=== PATIENT | male | born 1995 | race African-American/Black ===

== ENCOUNTER 2016-09-14 09:30 | Emergency (ER) | END 2016-09-14 11:01 | disposition left against medical advice (07) | LOC: UCCORT 09:30 | DX: M79.641 Pain in right hand (principal); Z53.21 Procedure and treatment not carried out due to patient leaving prior to being seen by health care provider ==

== ENCOUNTER 2019-05-26 16:45 | Emergency (ER) | payer OTHER ==
[2019-05-26 17:12] VITALS: BP 132/65
--- NOTE | 2019-05-26 17:33 | UC ---
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 No penile discharge, fever, back pain. Symptoms are intermittent and overall mild. - History of Current Complaint Chief Complaint: [facility]CGU Stated Complaint: URINARY Time Seen by Provider: 05/26/19 17:22 Hx Obtained From: Patient Onset/Duration: Gradual Onset, Lasting Weeks Timing: Intermittent, Lasting Hours Severity Initially: Mild Severity Currently: Mild Pain Intensity: 0 Location: Scrotum - has some pruritus without lesions. Character: Burning Aggravating Factor(s): Voiding Associated Signs And Symptoms: Positive: Dysuria. Negative: Back Pain, Fever, Hematuria, Rectal Pain, Nausea Prior STD Hx: Chlamydia earlier this year. - Risk Factors Testicular Torsion: Negative - Allergies/Home Medications Allergies/Adverse Reactions: Allergies Allergy/AdvReac Type Severity Reaction Status Date / Time amoxicillin Allergy Rash Verified 05/26/19 17:13 Home Medications: Home Medications NK [No Home Medications Reported] 05/26/19 [History Confirmed 05/26/19] PMH/Surg Hx/FS Hx/Imm Hx Previously Healthy: Yes GI/ History: Gastroesophageal Reflux - approached with dietary changes. - Surgical History Surgical History: None - Family History Known Family History: Positive: Diabetes - younger sibling. - Social History Occupation: Student Lives: Dormitory/Roommates Alcohol Use: Weekly Substance Use Type: None Smoking Status (MU): Current Some Day Smoker Review of Systems All Other Systems Reviewed And Are Negative: Yes Constitutional: Positive: Negative Skin: Positive: Negative Eyes: Positive: Negative ENT: Positive: Negative Respiratory: Positive: Negative Cardiovascular: Positive: Negative Gastrointestinal: Positive: Negative Genitourinary: Positive: Dysuria Motor: Positive: Negative Neurovascular: Positive: Negative Musculoskeletal: Positive: Negative Neurological: Positive: Negative Psychological: Positive: Negative Is Patient Immunocompromised?: No Physical Exam Triage Information Reviewed: Yes Appearance: Well-Appearing, No Pain Distress Vital Signs: Initial Vital Signs Temp 98.2 F 05/26/19 17:07 Pulse 62 05/26/19 17:07 Resp 16 05/26/19 17:07 BP 132/65 05/26/19 17:07 Pulse Ox 100 05/26/19 17:07 ENT: Positive: Pharynx normal Neck: Positive: Supple, Nontender, No Lymphadenopathy Respiratory: Positive: Lungs clear, Normal breath sounds Cardiovascular: Positive: RRR, No Murmur Abdomen Description: Positive: Nontender Male Genital Exam: Positive: Erythema - mild ezekiel-urethral erythema of the glans, without active discharge. Musculoskeletal Exam: Normal Neurological Exam: Normal Psychological Exam: Normal Skin Exam: Normal Complaint Male Course/Dx - Course Course Of Treatment: Discussed options, and, given hx suggestive of Chlamydia, opted for single dose treatment. - Differential Dx/Diagnosis Differential Diagnosis/HQI/PQRI: Urinary Tract Infection, Other - STI Provider Diagnosis: STI (sexually transmitted infection) Discharge ED - Sign-Out/Discharge Documenting (check all that apply): Patient Departure All imaging exams completed and their final reports reviewed: No Studies - Discharge Plan Condition: Good Disposition: HOME Patient Education Materials: Chlamydia (ED) Referrals: No Primary Care Phys,NOPCP [Primary Care Provider] - Additional Instructions: You have been treated presumptively for chlamydia, based on your current symptoms and past experience. You have received 1000mg of azithromycin, which is adequate treatment. Ensure that you consistently use condoms for protection. - Billing Disposition and Condition Condition: GOOD Disposition: Home
[2019-05-26] MEDS ORDERED: Azithromycin TAB* 250 MG PO ONE (17:36)
[2019-05-28 13:22] LABS: Chlamydia trachomatis NAA Negative (Negative); Neisseria gonorrhoeae (GC) NAA Negative (Negative)
== END 2019-05-26 17:50 | disposition home or self-care (01) ==
LOC: UCCORT 16:45
DX: A64 Unspecified sexually transmitted disease (principal); F17.200 Nicotine dependence, unspecified, uncomplicated; Z88.0 Allergy status to penicillin
CPT/HCPCS: 81003; 87491; 87591; 99212; A9270-GY; G0463

== ENCOUNTER 2019-09-29 14:20 | Inpatient (IN) | payer OTHER ==
--- NOTE | 2019-09-29 14:34 | ED ---
Psychiatric Complaint - History Of Current Complaint Chief Complaint: EDPsychosocial Time Seen by Provider: 09/29/19 14:29 Hx Obtained From: Patient - Allergies/Home Medications Allergies/Adverse Reactions: Allergies Allergy/AdvReac Type Severity Reaction Status Date / Time amoxicillin Allergy Rash Verified 09/29/19 14:25 PMH/Surg Hx/FS Hx/Imm Hx Previously Healthy: Yes Infectious Disease History: No Infectious Disease History: Denies: Traveled Outside the [place] in Last 30 Days Review of Systems All Other Systems Reviewed And Are Negative: Yes Physical Exam Triage Information Reviewed: Yes Vital Signs On Initial Exam: Initial Vitals Temp Pulse Resp BP Pulse Ox 98.6 F 100 18 146/82 98 09/29/19 14:21 09/29/19 14:21 09/29/19 14:21 09/29/19 14:21 09/29/19 14:21 Vital Signs Reviewed: Yes Procedures - Sedation Patient Received Moderate/Deep Sedation with Procedure: No Diagnostics - Vital Signs Vital Signs Temp Pulse Resp BP Pulse Ox 09/29/19 14:21 98.6 F 100 18 146/82 98 - Laboratory Lab Statement: Any lab studies that have been ordered have been reviewed, and results considered in the medical decision making process. - Attestation Statements Document Initiated by Scribe: Yes Documenting Scribe: Anita Cardenas Provider For Whom Scribe is Documenting (Include Credential): Patti Guerra MD Scribe Attestation: Anita Vela, scribed for Patti Guerra MD on 09/29/19 at 1434.
[2019-09-29] MEDS ORDERED: diPHENhydraMINE IV* 50 MG/ML 1 ml VIAL (BENADRYL) IM ONE (14:46)
[2019-09-29] MEDS ORDERED: LORazepam INJ* 2 MG/ML 1 ML VIAL ONE (14:46)
[2019-09-29] MEDS ORDERED: Lorazepam PYXIS KEY PRN (14:47)
[2019-09-29] MEDS ORDERED: Haloperidol INJ IV/IM* 5 MG/ML AMP IM ONE (14:47)
[2019-09-29] MEDS ORDERED: LORazepam INJ* 2 MG/ML 1 ML VIAL IM ONE (14:47)
--- NOTE | 2019-09-29 14:48 | ED ---
Psychiatric Complaint - HPI Summary HPI Summary: 23 year old M presenting to [facility] requesting medication refill. Patient is screaming at and threatening staff. LEVEL 5 CAVEAT: HPI is limited because patient is being uncooperative and not answering questions. - History Of Current Complaint Chief Complaint: EDMentalHealth Time Seen by Provider: 09/29/19 14:29 Hx Obtained From: Patient - Allergies/Home Medications Allergies/Adverse Reactions: Allergies Allergy/AdvReac Type Severity Reaction Status Date / Time amoxicillin Allergy Rash Verified 09/29/19 14:25 Home Medications: Home Medications OLANzapine TAB* [Zyprexa 5 MG TAB*] 5 mg PO DAILY 09/29/19 [History Confirmed ] PMH/Surg Hx/FS Hx/Imm Hx Previously Healthy: No - LEV 5 CAV: PMHx is limited b/c pt is being uncooperative - Surgical History Surgery Procedure, Year, and Place: LEV 5 CAV: Surgical hx is limited b/c pt is being uncooperative Infectious Disease History: No Infectious Disease History: Denies: Traveled Outside the [place] in Last 30 Days - Family History Family History: LEV 5 CAV: FHx is limited b/c pt is being uncooperative Review of Systems - ROS Summary Review of Systems Summary: LEVEL 5 CAVEAT: ROS is limited because patient is screaming at and threatening staff, being uncooperative, and not answering questions. Positive: Other - patient is screaming at and threatening staff, being uncooperative, not answering questions All Other Systems Reviewed And Are Negative: No Physical Exam - Summary Physical Exam Summary: Constitutional: Well-developed, Well-nourished, Alert. (-) Distressed Skin: Warm, Dry HENT: Normocephalic; Atraumatic Eyes: Conjunctiva normal Neck: Musculoskeletal ROM normal neck. (-) JVD, (-) Stridor, (-) Tracheal deviation Cardio: Rhythm regular, rate normal, Heart sounds normal; Intact distal pulses; The pedal pulses are 2+ and symmetric. Radial pulses are 2+ and symmetric. (-) Murmur Pulmonary/Chest wall: Effort normal. (-) Respiratory distress, (-) Wheezes, (-) Rales Abd: Soft, (-) tenderness, (-) Distension, (-) Guarding, (-) Rebound Musculoskeletal: (-) Edema Lymph: (-) Cervical adenopathy Neuro: Alert, Oriented x3. Patient ambulatory with steady gait. No focal deficits. Psych: Patient with intermittent yelling and apparent grandiose behavior Triage Information Reviewed: Yes Vital Signs On Initial Exam: Initial Vitals Temp Pulse Resp BP Pulse Ox 98.6 F 100 18 146/82 98 09/29/19 14:21 09/29/19 14:21 09/29/19 14:21 09/29/19 14:21 09/29/19 14:21 Vital Signs Reviewed: Yes Procedures - Sedation Patient Received Moderate/Deep Sedation with Procedure: No Diagnostics - Vital Signs Vital Signs Temp Pulse Resp BP Pulse Ox 09/29/19 14:21 98.6 F 100 18 146/82 98 - Laboratory Result Diagrams: 09/29/19 15:19 09/29/19 15:19 Lab Statement: Any lab studies that have been ordered have been reviewed, and results considered in the medical decision making process. Course/Dx - Course Course Of Treatment: 23 y/o M requesting medication refill. Upon physical exam , patient with intermittent yelling and apparent grandiose behavior. Patient ambulatory with steady gait. No focal deficits. Bloodwork results with no significant abnormalities. Urinalysis results with no significant abnormalities. Patient yelling, being verbally and physically threatening. Patient was given Benadryl, Ativan, and Haldol. Patient more cooperative after receiving sedation. Psychiatric railroad dispatcher reviewed case with Dr. Harvey, psychiatry. The patient will be admitted. - Differential Dx/Clinical Impression Provider Diagnosis: Psychotic disorder - Physician Notifications Time Discussed With Above Provider: 16:30 Instructed by Provider To: Admit As Inpatient Discharge ED - Sign-Out/Discharge Documenting (check all that apply): Patient Departure - Discharge Plan Condition: Stable [place] [place] [place] Disposition and Condition Condition: STABLE Disposition: [place] [facility] [place] Attestation Statements Document Initiated by Scribe: Yes Documenting Scribe: Ernestine Majano Provider For Whom Kimberlynibe is Documenting (Include Credential): Jd Silva DO Scribe Attestation: Ernestine Vela, scribed for Jd Silva DO on 09/29/19 at 1957. Scribe Documentation Reviewed: Yes Provider Attestation: The documentation as recorded by the Ernestine lambert accurately reflects the service I personally performed and the decisions made by me, Jd Silva, DO Status of Scribe Document: Viewed - Assessment for Patient Restraint Face to Face Encounter Date: 09/29/19 Face to Face Encounter Time: 14:45 Evaluation of the Patient's Immediate Situation: Patient yelling, being verbally and physically threatening Patient's Reaction to Intervention: Patient cooperative and lying down in bed for chemical restraint Patient's Medication and Behavioral Condition: Patient was given Benadryl, Ativan, and Haldol. Patient more cooperative after receiving sedation. Evaluate Need for Continued Restraint: Terminate
[2019-09-29 15:28] LABS: ABS Basophils 0.1 10^3/ul (0-0.2); ABS Eosinophils 0.1 10^3/ul (0-0.6); ABS Lymphocytes 1.7 10^3/ul (1.0-4.8); ABS Monocytes 0.7 10^3/ul (0-0.8); ABS Neutrophils 4.6 10^3/ul (1.5-7.7); Eosinophil % 1.2 %; Hematocrit 45 % (42-52); Hemoglobin 15.2 g/dL (14.0-18.0); Lymphocyte % 23.9 %; Mean Corpuscular HGB Conc 34 g/dL (31-36); Mean Corpuscular Hemoglobin 28 pg (27-31); Mean Corpuscular Volume 83 fL (80-94); Mean Platelet Volume 7.4 fL (7.4-10.4); Nucleated Red Blood Cells % 0.1; Platelet Count 269 10^3/uL (150-450); Red Blood Count 5.44 10^6 /uL (4.18-5.48); Red Cell Distribution Width 13 % (10-15); White Blood Count 7.1 10^3/uL (3.5-10.8)
[2019-09-29 15:30] LABS: Urine Appearance Clear; Urine Bilirubin Negative (Negative); Urine Blood 1+ (Negative); Urine Color Yellow; Urine Glucose Negative (Negative); Urine Ketones Negative (Negative); Urine Nitrite Negative (Negative); Urine Protein Negative (Negative); Urine Specific Gravity 1.023 (1.010-1.030); Urine Urobilinogen Negative (Negative)
[2019-09-29 15:31] LABS: Urine Bacteria Absent (Absent); Urine Red Blood Cell Trace(0-2/hpf) (Absent); Urine White Blood Cell Trace(0-5/hpf) (Absent)
[2019-09-29 15:47] LABS: Anion Gap 7 mmol/L (2-11); CO2 Carbon Dioxide 25 mmol/L (22-32); Chloride 104 mmol/L (101-111); Sodium 136 mmol/L (135-145)
[2019-09-29 15:53] LABS: ALT 40 U/L (7-52); AST 29 U/L (13-39); Albumin/Globulin Ratio 1.6 (1-3); Alkaline Phosphatase 54 U/L (34-104); BUN/Creatinine Ratio 13.4 (8-20); Blood Urea Nitrogen 15 mg/dL (6-24); EGFR African American 99.2 (>60); Globulin 3.2 g/dL (2-4); Glucose 99 mg/dL (70-100); Total Protein 8.2 g/dL (6.4-8.9)
[2019-09-29 15:58] LABS: Urine Benzodiazepine Screen None Detected (None Detect); Urine Opiates Screen None Detected (None Detect)
[2019-09-29 16:14] LABS: Acetaminophen < 15 mcg/mL; Alcohol < 10 mg/dL (<10); Salicylate < 2.50 mg/dL (<30)
[2019-09-29] MEDS ORDERED: Acetaminophen TAB* 325 MG PO PRN (16:18)
[2019-09-29] MEDS ORDERED: OLANzapine TAB*ODT* 5 MG PO ONE (16:25)
--- OUTSIDE RECORDS SUMMARY | 2019-09-29 16:53 | XMS REPORT ---
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 Social History Smoking Status Start Date Stop Date Unknown if ever smoked Medications This patient has no known medications. Vital Signs This patient has no known vital signs. Procedures This patient has no known procedures. Reason for Referral This patient has no known reason for referral. Chief Complaint and Reason for Visit This patient event has no chief complaint or reason for visit specified. Results This patient has no known results. Assessments This patient has no known assessments.
--- OUTSIDE RECORDS SUMMARY | 2019-09-29 16:53 | XMS REPORT ---
:1995 Author Care Team Providers Name Role Phone Unavailable Unavailable Unavailable Problems Condition Condition Condition Status Onset Resolution Last Treating Comments Name Details Category Date Date Treatment Clinician Date Recurrent Active 2019-08-11 mild major 00:00:00 depressive [...]
--- OUTSIDE RECORDS SUMMARY | 2019-09-29 16:54 | XMS REPORT | Clinical Summary ---
:1995 Author Organization [facility] [place] [address] Care Team Providers Name Role Phone Unavailable Primary Care Provider Unavailable Allergies No Known Allergies Medications Medication Sig Dispensed Refills Start Date End Date Status docusate sodium 100 MG Take 100 mg by 10 capsule 0 08/17/2019 08/27/2019 Active CAPSIndications: mouth 2 (two) Constipation due to times daily for pain medication 10 days. olanzapine zydis Take 1 tablet 30 tablet 0 08/17/2019 09/16/2019 Active (ZYPREXA) 5 MG by mouth disintegrating nightly for 30 tabletIndications: days. Brief psychotic disorder Active Problems Problem Noted Date Constipation 08/13/2019 Brief psychotic disorder 08/11/2019 Encounters Date Type Specialty Care Team Description 08/11/2019 Travel from Last 3 Months Social History Tobacco Use Types Packs/Day Years Used Date Smoker, Current Status Unknown Cigarettes 1 Alcohol Use Drinks/Week oz/Week Comments Yes Sex Assigned at Date Recorded Not on file Job Start Date Occupation Industry Not on file Not on file Not on file Travel History Travel Start Travel End No recent travel history available. Last Filed Vital Signs Vital Sign Reading Time Taken Comments Blood Pressure 156/74 08/17/2019 8:14 AM EST Pulse 97 08/17/2019 8:14 AM EST Temperature 36.7 08/16/2019 4:17 PM EST C (98 F) Respiratory Rate 18 08/17/2019 8:14 AM EST Oxygen Saturation 93% 08/16/2019 4:17 PM EST Inhaled Oxygen Concentration - - Weight 103.9 kg (229 lb) 08/11/2019 8:13 AM EST Height 175.3 cm (5' 9") 08/11/2019 8:13 AM EST Body Mass Index 33.82 08/11/2019 8:13 AM EST Plan of Treatment Not on file Procedures Procedure Name Priority Date/Time Associated Comments Diagnosis HEMOGLOBIN A1C Routine 08/14/2019 10:52 Results for this AM EST procedure are in the results section. CBC Routine 08/14/2019 10:52 Results for this AM EST procedure are in the results section. LIPID PROFILE WITH Routine 08/14/2019 7:21 Results for this REFLEX TO DIRECT LDL AM EST procedure are in the results section. TOXICOLOGY SCREEN, STAT 08/11/2019 5:19 Results for this URINE PM EST procedure are in the results section. URINALYSIS STAT 08/11/2019 5:19 Results for this PM EST procedure are in the results section. TSH STAT 08/11/2019 8:16 Results for this AM EST procedure are in the results section. ETHANOL STAT 08/11/2019 8:16 Results for this AM EST procedure are in the results section. SALICYLATE LEVEL STAT 08/11/2019 8:16 Results for this AM EST procedure are in the results section. ACETAMINOPHEN LEVEL STAT 08/11/2019 8:16 Results for this AM EST procedure are in the results section. HEPATIC FUNCTION PANEL STAT 08/11/2019 8:16 Results for this AM EST procedure are in the results section. BASIC METABOLIC PANEL STAT 08/11/2019 8:16 Results for this AM EST procedure are in the results section. ED EKG 12 LEAD STAT 08/11/2019 8:12 Results for this AM EST procedure are in the results section. from Last 3 Months Results CBC (08/14/2019 10:52 AM EST) WBC 8.1 4.3 - 10.6 10^3/ [facility] RBC 5.52 4.30 - 5.80 10^6/ [facility] L Hemoglobin 14.7 13.3 - 17.0 g/dL [facility] Hematocrit 45.5 40.3 - 50.3 % [facility] MCV 82.4 81.4 - 99.0 fL [facility] MCH 26.6 (L) 26.8 - 32.9 pg [facility] MCHC 32.3 31.4 - 34.9 g/dL [facility] RDW 12.7 11.6 - 14.9 % [facility] Platelets 276 132 - 337 10^3/ [facility] L Specimen Blood Performing Organization Address City/State/Zipcode Phone Number [facility] [address] [place] [phone] HEMOGLOBIN A1C (08/14/2019 10:52 AM EST) Hemoglobin A1C 5.4 <5.7 % [facility] Specimen Whole Blood Narrative Performed At [employer] recommended guidelines: [facility] Normal Less than 5.7% Prediabetes 5.7% to 6.4% Diabetes 6.5% or higher Performing Organization Address [facility] Phone Number [facility] [address] [place] [phone] LIPID PROFILE WITH REFLEX TO DIRECT LDL (08/14/2019 7:21 AM EST) Triglycerides 41 <=150 mg/dL [facility] Cholesterol 161 <=200 mg/dL [facility] LDL Calculated 90 0 - 160 mg/dL [facility] HDL 63 >=60 mg/dL [facility] Specimen Blood Narrative Performed At Triglycerides (mg/dL): [facility] < 150 Optimal 150-199 Borderline High 200-499 High >= 500 Very High Cholesterol (mg/dL): < 200 Desirable 200-240 Borderline High > 240 High Risk LDL Calculated (mg/dL): < 100 Optimal 100-129 Near Optimal 130-159 Borderline High 160-189 High >= 190 Very High HDL (mg/dL): < 40 High Risk Factor >= 60 Low Risk Factor Performing Organization Address [facility] Phone Number [facility] [address] [place] [phone] Toxicology screen, urine (08/11/2019 5:19 PM EST) Amphetamine Screen Ur Negative Negative [facility] Barbiturate Screen Ur Negative Negative [facility] Benzodiazepine Screen Presumptive Negative [facility] Ur Positive (A) Cocaine Screen Ur Negative Negative [facility] Methadone Screen Ur Negative Negative [facility] Opiate Screen Ur Negative Negative [facility] Phencyclidine Screen Negative Negative [facility] Ur Cannabinoid (THC) Presumptive Negative [facility] Screen Ur Positive (A) Specimen Urine Narrative Performed At Amphetamine Cutoff = 1000 ng/mL [facility] Barbiturate Cutoff = 200 ng/mL Benzodiazepine Cutoff = 200 ng/mL Cocaine Metabolite Cutoff = 300 ng/mL Opiates Cutoff = 300 ng/mL Phencyclidine Cutoff = 25 ng/mL Methadone Cutoff = 300 ng/mL Cannabinoids (THC) Cutoff = 50 ng/mL This test provides a preliminary result only; positive results are unconfirmed. A more specific chemical method must be used for confirmation. Clinical consideration and professional judgment should be applied to any drug of abuse test result, particularly when preliminary positive results are used. Confirmatory testing will be performed by request only when ordered within 48 hours of specimen receipt. Performing Organization Address [facility] Phone Number [facility] [address] [place] [phone] Urinalysis (08/11/2019 5:19 PM EST) Clarity, UA Clear Clear [facility] Color, UA Yellow Colorless, Yellow, [facility] Straw Specific [place], UA 1.031 1.001 - 1.035 [facility] Glucose, UA Negative Negative mg/dL [facility] pH, UA 6.0 5.0 - 8.0 [facility] Blood, UA Negative Negative [facility] Protein, UA Negative Negative mg/dL [facility] Bilirubin, UA Negative Negative [facility] Urobilinogen, UA Negative Negative mg/dL [facility] Ketone UA Negative Negative mg/dL [facility] Nitrite, UA Negative Negative [facility] Leukocytes, UA Negative Negative [facility] Specimen Urine Performing Organization Address [facility] Phone Number [facility] [address] [place] [address] [phone] TSH (08/11/2019 8:16 AM EST) TSH 1.510 0.450 - 5.330 uIU/mL [facility] Specimen Blood Narrative Performed At Males and Non- females: [facility] 0.450-5.330 uIU/mL females, 1st trimester: 0.050-3.700 uIU/mL females, 2nd trimester: 0.310-4.350 uIU/mL females, 3rd trimester: 0.410-5.180 uIU/mL Performing Organization Address [facility] Phone Number [facility] [address] [place] [phone] Blood Alcohol (08/11/2019 8:16 AM EST) Ethanol Lvl <5 <=5 mg/dL [facility] Specimen Blood Narrative Performed At Legal Limit = 80 mg/dL [facility] Serum Alcohol Levels are now reported in mg/dL, rather than %. To convert the result to %, move the decimal three places to the left. Example: 100 mg/dL = 0.100% Performing Organization Address [facility] Phone Number [facility] [address] [place] [phone] Acetaminophen level (08/11/2019 8:16 AM EST) Acetaminophen Level <10.0 (L) 10.0 - 30.0 ug/mL [facility] Specimen Blood Performing Organization Address [facility] Phone Number [facility] [address] [place] [phone] Aspirin level (08/11/2019 8:16 AM EST) Salicylate Lvl <4.0 <=30.0 mg/dL [facility] Specimen Blood Narrative Performed At Patients on sulfasalazine containing drugs may give falsely elevated [facility] salicylate results. Patients on sulfapyridine containing drugs may give falsely decreased salicylate results. Patients treated with Temozolomide may produce falsely low salicylate results. Performing Organization Address [facility] Phone Number [facility] [address] [place] [phone] Hepatic function panel (08/11/2019 8:16 AM EST) Albumin 4.7 3.5 - 4.8 g/dL [facility] Total Protein 7.9 6.4 - 8.3 g/dL [facility] Total Bilirubin 1.0 0.3 - 1.2 mg/dL [facility] Bilirubin, Direct 0.13 0.10 - 0.50 mg/dL [facility] Bilirubin, Indirect 0.87 (H) 0 - 0.7 mg/dL [facility] Alkaline Phosphatase 46 45 - 117 U/L [facility] AST 51 (H) 15 - 41 U/L [facility] ALT 32 17 - 63 U/L [facility] Specimen Blood Performing Organization [facility] Phone Number [facility] [address] [place] [phone] Basic metabolic panel (08/11/2019 8:16 AM EST) Sodium 138 136 - 144 mEq/L [facility] Potassium 3.6 3.5 - 5.1 mEq/L [facility] Chloride 104 101 - 111 mEq/L [facility] CO2 21 (L) 22 - 32 mEq/L [facility] BUN 12 8 - 20 mg/dL [facility] Glucose 144 (H) 70 - 110 mg/dL [facility] Calcium 9.8 8.5 - 10.1 mg/dL [facility] Creatinine 1.17 (H) 0.55 - 1.02 [facility] mg/dL Anion Gap 13 8 - 17 mEq/L [facility] eGFR >60.0 >=60.0 [facility] ml/min/1.732m2 eGFR NON >60.0 >=60.0 [facility] BULGARIAN ml/min/1.732m2 Specimen Blood Performing Organization Address City/State/[facility] Phone Number [facility] [address] [place] [phone] ED EKG 12 LEAD (08/11/2019 8:12 AM EST) Ventricular Rate 88 BPM [facility] Atrial Rate 88 BPM [facility] P-R Interval 170 ms [facility] QRS Duration 82 ms [facility] Q-T Interval 362 ms [facility] QTC Calculation (Bezet) 438 ms [facility] P [place] 84 degrees [facility] R [place] 82 degrees [facility] T [place] 61 degrees [facility] Specimen Narrative Performed At Normal sinus rhythm [facility] Normal ECG No previous ECGs available Confirmed by KRISHAN HERNANDEZ MD ([id number]) on 08/14/2019 10:15:09 PM Procedure Note Jose Elias, External Ris In - 08/14/2019 10:15 PM EST Normal sinus rhythm Normal ECG No previous ECGs available Confirmed by KRISHAN HERNANDEZ MD ([id number]) on 08/14/2019 10:15:09 PM Performing Organization Address City/State/[facility] Phone Number [facility] from Last 3 Months Insurance Payer Benefit Plan / Subscriber ID Effective Dates Phone Address Type Group [employer] MVP HMO/PPO xxxxxxxxxxx 2018-Present [employer] xxxxxxxxxxx 2018-Present OPTIONS OPTIONS
[2019-09-29 17:19] LABS: TSH (Thyroid Stimulating Horm) 1.26 mcIU/mL (0.34-5.60)
[2019-09-29] MEDS ORDERED: LORazepam TAB(*) 1 MG PO ONE (17:23)
--- OUTSIDE RECORDS SUMMARY | 2019-09-29 18:21 | XMS REPORT | Clinical Summary ---
:1995 Author Organization [facility] [place] [address] Care Team Providers Name Role Phone Unavailable [...] L RBC 5.52 4.30 - 5.80 10^6/ [facility] L Hemoglobin 14.7 13.3 - 17.0 g/dL [facility] Hematocrit 45.5 40.3 - 50.3 % [facility] MCV 82.4 81.4 - 99.0 fL [facility] MCH 26.6 (L) 26.8 - 32.9 pg [facility] MCHC 32.3 31.4 - 34.9 g/dL [facility] RDW 12.7 11.6 - 14.9 % [facility] Platelets 276 132 - 337 10^3/ [facility] L Specimen Blood Performing Organization Address City/State/Zipcode Phone Number [facility] [address] [place] [phone] HEMOGLOBIN A1C (08/14/2019 10:52 AM EST) Hemoglobin A1C 5.4 <5.7 % [facility] Specimen Whole Blood Narrative Performed At [place] [employer] recommended guidelines: [facility] Normal Less than 5.7% Prediabetes 5.7% to 6.4% Diabetes 6.5% or higher Performing Organization Address [facility] Phone Number [facility] [address] [place] [phone] LIPID PROFILE WITH REFLEX TO DIRECT LDL (08/14/2019 7:21 AM EST) Triglycerides 41 <=150 mg/dL [facility] Cholesterol 161 <=200 mg/dL [facility] LDL Calculated 90 0 - 160 mg/dL [facility] HDL 63 >=60 mg/dL [facility] Specimen Blood Narrative Performed At Triglycerides (mg/dL): [facility] < 150 Optimal 150-199 Borderline High 200-499 High >= 500 Very High Cholesterol (mg/dL): < 200 Desirable 200-240 Borderline High > 240 High Risk LDL Calculated (mg/dL): < 100 Optimal 100-129 Near Optimal 130-159 Borderline High 160-189 High >= 190 Very High HDL (mg/dL): < 40 High Risk Factor >= 60 Low Risk Factor Performing Organization Address [facility] Phone Number [facility] [address] [place] [phone] Toxicology screen, urine (08/11/2019 5:19 PM EST) Amphetamine Screen Ur Negative Negative [facility] Barbiturate Screen Ur Negative Negative [facility] Benzodiazepine Screen Presumptive Negative [facility] Ur Positive (A) Cocaine Screen Ur Negative Negative [facility] Methadone Screen Ur Negative Negative [facility] Opiate Screen Ur Negative Negative [facility] Phencyclidine Screen Negative Negative [facility] Ur Cannabinoid (THC) Presumptive Negative [facility] Screen Ur Positive (A) Specimen Urine Narrative Performed At Amphetamine Cutoff = 1000 ng/mL [facility] Barbiturate Cutoff = 200 ng/mL Benzodiazepine [...] hours of specimen receipt. Performing Organization Address [facility] Phone Number [facility] [address] [place] [phone] Urinalysis (08/11/2019 5:19 PM EST) Clarity, UA Clear Clear [facility] Color, UA Yellow Colorless, Yellow, [facility] Straw Specific [place], UA 1.031 1.001 - 1.035 [facility] Glucose, UA Negative Negative mg/dL [facility] pH, UA 6.0 5.0 - 8.0 [facility] Blood, UA Negative Negative [facility] Protein, UA Negative Negative mg/dL [facility] Bilirubin, UA Negative Negative [facility] Urobilinogen, UA Negative Negative mg/dL [facility] Ketone UA Negative Negative mg/dL [facility] Nitrite, UA Negative Negative [facility] Leukocytes, UA Negative Negative [facility] Specimen Urine Performing Organization Address [facility] Phone Number [facility] [address] [place] [address] [phone] TSH (08/11/2019 8:16 AM EST) TSH 1.510 0.450 - 5.330 uIU/mL [facility] Specimen Blood Narrative Performed At Males and Non- females: [facility] 0.450-5.330 uIU/mL females, 1st trimester: 0.050-3.700 uIU/mL females, 2nd trimester: 0.310-4.350 uIU/mL females, 3rd trimester: 0.410-5.180 uIU/mL Performing Organization Address [facility] Phone Number [facility] [address] [place] [phone] Blood Alcohol (08/11/2019 8:16 AM EST) Ethanol Lvl <5 <=5 mg/dL [facility] Specimen Blood Narrative Performed At Legal Limit = 80 mg/dL [facility] Serum Alcohol Levels are now reported in mg/dL, rather than %. To convert the result to %, move the decimal three places to the left. Example: 100 mg/dL = 0.100% Performing Organization Address [facility] Phone Number [facility] [address] [place] [phone] Acetaminophen level (08/11/2019 8:16 AM EST) Acetaminophen Level <10.0 (L) 10.0 - 30.0 ug/mL [facility] Specimen Blood Performing Organization Address [facility] Phone Number [facility] [address] [place] [phone] Aspirin level (08/11/2019 8:16 AM EST) Salicylate Lvl <4.0 <=30.0 mg/dL [facility] Specimen Blood Narrative Performed At Patients on sulfasalazine containing drugs may give falsely elevated [facility] salicylate results. Patients on sulfapyridine containing drugs may give falsely decreased salicylate results. Patients treated with Temozolomide may produce falsely low salicylate results. Performing Organization Address [facility] Phone Number [facility] [address] [place] [phone] Hepatic function panel (08/11/2019 8:16 AM EST) Albumin 4.7 3.5 - 4.8 g/dL [facility] Total Protein 7.9 6.4 - 8.3 g/dL [facility] Total Bilirubin 1.0 0.3 - 1.2 mg/dL [facility] Bilirubin, Direct 0.13 0.10 - 0.50 mg/dL [facility] Bilirubin, Indirect 0.87 (H) 0 - 0.7 mg/dL [facility] Alkaline Phosphatase 46 45 - 117 U/L [facility] AST 51 (H) 15 - 41 U/L [facility] ALT 32 17 - 63 U/L [facility] Specimen Blood Performing Organization [facility] Phone Number [facility] [address] [place] [phone] Basic metabolic panel (08/11/2019 8:16 AM EST) Sodium 138 136 - 144 mEq/L [facility] Potassium 3.6 3.5 - 5.1 mEq/L [facility] Chloride 104 101 - 111 mEq/L [facility] CO2 21 (L) 22 - 32 mEq/L [facility] BUN 12 8 - 20 mg/dL [facility] Glucose 144 (H) 70 - 110 mg/dL [facility] Calcium 9.8 8.5 - 10.1 mg/dL [facility] Creatinine 1.17 (H) 0.55 - 1.02 [facility] mg/dL Anion Gap 13 8 - 17 mEq/L [facility] eGFR >60.0 >=60.0 [facility] ml/min/1.732m2 eGFR NON >60.0 >=60.0 [facility] OMANI ml/min/1.732m2 Specimen Blood Performing Organization Address City/State/[facility] Phone Number [facility] [address] [place] [phone] ED EKG 12 LEAD (08/11/2019 8:12 AM EST) Ventricular Rate 88 BPM [facility] Atrial Rate 88 BPM [facility] P-R Interval 170 ms [facility] QRS Duration 82 ms [facility] Q-T Interval 362 ms [facility] QTC Calculation (Bezet) 438 ms [facility] P [place] 84 degrees [facility] R [place] 82 degrees [facility] T [place] 61 degrees [facility] Specimen Narrative Performed At Normal sinus rhythm [facility] Normal ECG No previous ECGs available Confirmed by KRISHAN HERNANDEZ MD ([id number]) on 08/14/2019 10:15:09 PM Procedure Note Jose Elias, External Ris In - 08/14/2019 10:15 PM EST Normal sinus rhythm Normal ECG No previous ECGs available Confirmed by KRISHAN HERNANDEZ MD ([id number]) on 08/14/2019 10:15:09 PM Performing Organization Address City/State/[facility] Phone Number [facility] from Last 3 Months Insurance Payer Benefit Plan / Subscriber ID Effective Dates Phone Address Type Group [employer] MVP HMO/PPO xxxxxxxxxxx 2018-Present [place] xxxxxxxxxxx 2018-Present OPTIONS OPTIONS
[2019-09-29] MEDS ORDERED: OLANzapine TAB* 5 MG PO SCH (21:00)
[2019-09-30] MEDS: Nicotine* 2MG (FRUIT FLAVOR) GUM PO PRN ×4 (12:09→22:10)
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
[2019-09-30] MEDS: chlorproMAZINE TAB* 100 MG PO PRN (18:00)
[2019-09-30] MEDS ORDERED: OLANzapine TAB* 5 MG PO SCH (21:00)
[2019-10-01] MEDS: chlorproMAZINE TAB* 100 MG PO PRN (00:50)
[2019-10-01] MEDS: Al Hydrox/Mg Hydrox/Simet LIQ* 30 ML UDC PO PRN ×2 (01:41→05:33)
[2019-10-01] MEDS ORDERED: Propranolol TAB* 60 MG PO ONE (02:35)
[2019-10-01 08:33] VITALS: BP 154/71
[2019-10-01] MEDS: Nicotine* 2MG (FRUIT FLAVOR) GUM PO PRN (08:50)
[2019-10-01] MEDS ORDERED: Influenza VAC *QUAD* 2019-20* 0.5 ML SYRINGE IM ONE (09:00)
[2019-10-01] MEDS ORDERED: Pneumococcal *Vac Polyvalent 0.5 ML VIAL IM ONE (09:00)
[2019-10-01 13:18] LABS: Cholesterol 210 mg/dL; HDL Cholesterol 61.9 mg/dL; LDL Cholesterol 130 mg/dL; Triglycerides 89 mg/dL
[2019-10-01] MEDS ORDERED: OLANzapine TAB* 10 MG PO SCH (21:00)
--- NOTE | 2019-10-02 09:51 | DS ---
CC: [facility] * DISCHARGE SUMMARY: DATE OF ADMISSION: 09/29/19 DATE OF DISCHARGE: 10/01/19 PROVIDER: Vivian Marquez NP, in Psychiatry. SUPERVISING PHYSICIAN: Dr. Duarte Harvey.* (DICTATED BY VIVIAN MARQUEZ NP) DIAGNOSIS: Bipolar I disorder, current episode manic with psychotic features. CONDITION AT THE TIME OF DISCHARGE: Improved, psychiatrically cleared, stable. Daniel participated in few groups but was very social with peers. His family is uncertain about his discharge, but Daniel is convincing and certain of his own appropriateness for discharge. He has done well here psychiatrically. He tolerated the increase of Zyprexa well. He will be attending [facility]. MENTAL STATUS EXAM: At the time of discharge, Daniel is calm and cooperative. He makes intense eye contact. He is alert and oriented x4. His grooming is excellent. His speech pace is slightly rapid. Thought processes are logical. He is not psychotic. He is not delusional. He denies AH, VH, SI, and HI. His insight and judgment are fair to good. He is willing to follow up and he is urged to see a therapist. DISCHARGE INSTRUCTIONS TO THE PATIENT: A. Medications: 1. Nicotine gum 2 mg q.2 hours p.r.n. craving. 2. Olanzapine 10 mg at bedtime. 3. Propranolol 20 mg twice a day p.r.n. anxiety. B. Diet is regular. C. Activities are as tolerated. He is a smoker, but he has been referred to the [facility] Sm[facility]uit[facility] at this time, although he has declined to use it. If he decides to access this free service in the future he can contact the Quitline at [phone]. There are no studies pending at the time of discharge. D. Followup care. Daniel has appointment at the [facility] on 10/02/19 at 9 a.m. with Zonia. He also has a psychiatry appointment with [facility] on 10/08/19 at 11 a.m. E. Disposition. He is being sent back to his home with roommates in [place], [place]. D. Substance abuse followup is not indicated. HOSPITAL COURSE: Part A: Chief Complaint: "I get confused, then frustrated, and then I'm psychotic." The patient is a 23-year-old single mixed-race male with a history of 2 hospitalizations relating to psychosis who arrives brought in by himself and is here on a 9.39 status following his presentation to the emergency department stating he needed Zyprexa 5 mg refills and finding instead that he was behaving in a psychotic and disorganized manner. Daniel came to the hospital in search of the refill of Zyprexa 5 mg and was found to be pushy and aggressive and behaving in strange ways such as barking like a dog on the floor and praying. He is not typically like that. He has been hospitalized twice in the past with similar behaviors, however. He states that his psychotic episodes occur when he is stressed out, when he feels confused which leads to frustration, which leads to psychosis. He states Zyprexa keeps this in check, although at times he can feel himself "becoming high" and he knows that he needs to engage in self-care. He states that lack of sleep, poor eating, not enough water, isolation, staying in the house, and frustration are all things that lead him to become psychotic. His stressors at this time are being a senior in college at [employer] where he is majoring in social philosophy, which is the study of interactions between humans and society. His symptoms include distractibility. He has at times been in the streets such as walking around his parents' house naked. He has grandiose thoughts. His activity increases when he is in these moods. He does get sleep deficits and he is very talkative. In addition to this, he displays psychotic behaviors. Interestingly, he states he never gets depressed just for a day or two at a time. It has never been problematic for him, and at this time, he does not appear psychotic, although he was last night. Part B: Psychiatric treatment was rendered: Daniel was admitted to the adult behavioral unit and placed on 15-minute checks for safety. He was safe on all checks. Daniel did well on the unit. He went to groups, although he said he already understood and knew all the content. He interacted with peers very well. He tolerated the increase of Zyprexa from 5 to 10 mg and he started propranolol 20 mg p.r.n. anxiety. He stated that he believed he had a heart attack because his heart was beating so fast and he had symptoms that mimicked a cardiac event, still his blood pressure and heart rate were not too far out of the norm, and propranolol helped. He also declined to have a medical workup related to this "heart attack." The Zyprexa, Daniel is eager to take more of. He does not like feeling psychotic and it makes him uncomfortable. He does, however, enjoy feeling elevated and seems to function on that level at baseline. Because Daniel is taking an atypical antipsychotic, it should be noted that his hemoglobin A1c is 5.3. His lipid panel was not captured at a guaranteed fasting rate; nevertheless, this is what was captured from his emergency department records: triglycerides 89, cholesterol 210, LDL cholesterol 130, HDL cholesterol 61.9. Daniel called his mother, who indicated she did not think that he was going to be discharged today. No consults were entered for Daniel. It should be noted that although I believe his presentation is above baseline and Daniel agrees with me, there is no danger to his being discharged. He is not a danger to himself or anyone else. In fact, he brought himself here voluntarily wanting medication so that he would not remain in this psychotic state, which showed good insight and judgment on his part, although he was mildly psychotic at that time. He has improved. Although he remains elevated, he is no longer psychotic. He believes that he is eager to get back to his school work, and as he is a senior, he does not have a lot of time to make up work should he fall behind. VIVIAN MARQUEZ, SUSY [id number]/[facility] #: [id number] [facility]
== END 2019-10-01 12:10 | disposition home or self-care (01) | DRG 753 ==
LOC: ED 14:20 → BSU 16:18 → MERGE 16:18 → ED 17:39
PROVIDERS: ADMIT Psychiatry & Neurology Psychiatry; ATTEND Psychiatry & Neurology Psychiatry
DX: F31.2 Bipolar disorder, current episode manic severe with psychotic features (principal); F17.200 Nicotine dependence, unspecified, uncomplicated; F41.9 Anxiety disorder, unspecified; Z88.0 Allergy status to penicillin; Z79.899 Other long term (current) drug therapy
CPT/HCPCS: 36415; 80053; 80061; 80307; 80320; 80329; 81003; 81015; 83036; 84443; 85025; 87086; 90732; 99222; 99238; 99284; A9270-GY; G0480; J1200; J1630; J2060